=== PATIENT | male | born 1975 | race Caucasian/White ===

== ENCOUNTER 2018-10-19 21:13 | Emergency (ER) | payer OTHER ==
--- NOTE | 2018-10-19 21:31 | ED.PDOC ---
History of Present Illness - General Time Seen by Provider: 10/19/18 21:28 Source: RN notes reviewed, Vital Signs reviewed Additional Information: 42 YEAR OLD WHITE MALE PRESENTS TO THE ED FOR EVALUATION OF RIGHT SIDED CHEST PAIN DURATION 6 MONTHS HE HAS INTERMITTANT SHARP PAIN ON THE RIGHT CHEST WITH SPONTANEOUS RELIEF NO ASSOCIATED SHORTNESS OF BREATH NO FEVER NO HEMOPTYSIS NO ARM NECK OR JAW PAIN HE HAS NO RISK FACTORS FOR CAD OR PE HE HAS NO GI SYMPTOMS - History of Present Illness Timing/Duration: changing over time Severity/Quality: moderate Chest Pain Radiation: no radiation Activities at Onset: none Prior Chest Pain/Cardiac Workup: no prior chest pain Improving Factors: nothing Worsening Factors: nothing Aspirin Treatment Today: no aspirin today Associated Symptoms: denies symptoms Allergies/Adverse Reactions: Allergies NO KNOWN ALLERGY Allergy (Unverified 03/26/14 16:12) Home Medications: Ambulatory Orders Acetaminophen W/ Codeine [Tylenol W/ CODEINE #3] 1 ea PO Q4H PRN #12 04/26/15 Ibuprofen [Motrin Tab] 600 mg PO TID PRN #15 tab 04/26/15 Review of Systems - Review of Systems Constitutional: States: no symptoms reported EENTM: States: no symptoms reported Respiratory: States: no symptoms reported Cardiology: States: see HPI Gastrointestinal/Abdominal: States: no symptoms reported Genitourinary: States: no symptoms reported Musculoskeletal: States: no symptoms reported Skin: States: no symptoms reported Neurological: States: no symptoms reported Endocrine: States: no symptoms reported Hematologic/Lymphatic: States: no symptoms reported Past Medical History (General) - Patient Medical History Hx Stroke: No Hx Congestive Heart Failure: No Hx Diabetes: No Hx MRSA: Yes - Finger,Thigh 2007 MRSA Source:: Wound - Vaccination History Hx Tetanus, Diphtheria Vaccination: Yes Hx Influenza Vaccination: Yes - 2014 - Social History Hx Tobacco Use: Yes Family Medical History - Family History Father Family History: Unknown Living Status: Unknown Physical Exam - Physical Exam General Appearance: Alert, Well Developed, Well Groomed, Well Hydrated, Well Nourished Eyes, Ears, Nose, Throat Exam: PERRL/EOMI, normal ENT inspection, TMs normal, pharynx normal Neck: non-tender, full range of motion, supple, normal inspection Respiratory: chest non-tender, lungs clear, normal breath sounds Cardiovascular/Chest: normal peripheral pulses, regular rate, rhythm, no edema, no gallop, no JVD Gastrointestinal/Abdominal: normal bowel sounds, non tender, soft, no organomegaly, no pulsatile mass Extremity: normal range of motion, non-tender, normal inspection, no pedal edema, no calf tenderness Neurologic: licensed clinical psychologist II-XII nml as tested, no motor/sensory deficits, alert, normal mood/affect, oriented x 3 Progress - Results/Orders Results/Orders: Laboratory Tests 10/19/18 10/19/18 22:09 22:09 WBC 7.4 RBC 4.34 L Hgb 14.0 Hct 41.1 L MCV 94.8 H MCH 32.4 H MCHC 34.2 RDW 13.9 Plt Count 235 MPV 7.9 Absolute Neuts (auto) 3.50 Absolute Lymphs (auto) 2.70 Absolute Monos (auto) 0.90 H Absolute Eos (auto) 0.30 Absolute Basos (auto) 0.00 Neutrophils % 47.6 Lymphocytes % 36.3 Monocytes % 12.1 H Eosinophils % 3.5 Basophils % 0.5 PT 9.5 INR 0.95 PTT (SP) 24.5 D-Dimer, Quantitative 0.21 Sodium 139 Potassium 3.5 L Chloride 106 Carbon Dioxide 24 Anion Gap 12.5 BUN 12 Creatinine 1.12 BUN/Creatinine Ratio 10.7 Random Glucose 113 H Serum Osmolality 278.1 Calcium 8.9 Magnesium 2.2 Creatine Kinase 1143 H* CK-MB (CK-2) 8.5 H* CK-MB (CK-2) % 0.74 Troponin I < 0.02 23 10 LABS REVIEWED CK ELEVATION NOTED AND DISCUSSED WITH PATIENTS HE DOES A LOT OF EXERCISE AND WORKS OUT BUT HAS NO MYALGIA IN PARTICULAR IN ANY MAJOR MUSCLE GROUPS TO SUGGEST RHABDOMYOLYSIS IT COULD BE IIM IDIOPATHIC INLAMATORY MYOSITIS HE WAS RECOMMENDED TO FOLLOW UP WITH HIS PCP FOR FURTHER WORK UP AND REST FOR NOW - EKG/XRAY/CT EKG: Sinus, no ST T wave changes XRAY: chest Xray Comments: NORMAL Departure - Departure Clinical Impression: Atypical chest pain Time of Disposition: 23:20 Disposition: Discharge to Home or Self Care Condition: Good Diet: regular diet Referrals: James Hutchins MD [Primary Care Provider] - 1-2 Weeks Home Medications: Ambulatory Orders Acetaminophen W/ Codeine [Tylenol W/ CODEINE #3] 1 ea PO Q4H PRN #12 04/26/15 Ibuprofen [Motrin Tab] 600 mg PO TID PRN #15 tab 04/26/15 Additional Instructions: PLEASE FOLLOW UP WITH PCP RETURN IF SYMPTOMS WORSEN
--- NOTE | 2018-10-19 21:47 | RAD ---
EXAM DESCRIPTION: Chest,1 View CLINICAL HISTORY: 42 years Male CHEST PAIN COMPARISON: None TECHNIQUE: AP view of the chest was obtained. FINDINGS: Cardiac size is within normal limits. Central vessels are not increased. No infiltrates or effusions seen. Mild atelectatic change lower lungs bilaterally. No consolidation. No pneumothorax. IMPRESSION: No active disease. Electronically signed by: Zoie Calles MD 10/19/2018 9:46 PM CDT
[2018-10-19 23:36] VITALS: BP 137/80; TEMP 97.1; O2SAT 99
== END 2018-10-19 23:31 | disposition home or self-care (01) ==
LOC: ER 21:13
DX: R07.89 Other chest pain (principal); Z87.891 Personal history of nicotine dependence